=== PATIENT | male | born 1985 | race African-American/Black ===

== ENCOUNTER 2017-06-07 15:14 | Emergency (ER) | payer OTHER, BC ==
[2017-06-07] MEDS ORDERED: HYDROCODONE/ACETAMINOPHEN 5-325 MG TABLET PO ONE (15:41)
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
[2017-06-07 16:17] VITALS: BP 132/81
== END 2017-06-07 16:17 | disposition home or self-care (01) ==
LOC: ER 15:14
DX: S63.611A Unspecified sprain of left index finger, initial encounter (principal); T14.8XXA Other injury of unspecified body region, initial encounter; V40.5XXA Car driver injured in collision with pedestrian or animal in traffic accident, initial encounter; M54.89 Other dorsalgia; R07.81 Pleurodynia
CPT/HCPCS: 99284